=== PATIENT | male | born 1995 | race African-American/Black ===

== ENCOUNTER 2021-08-16 15:48 | Emergency (ER) | payer BC ==
[~2021-08-16] VITALS: Ht 175.3 cm; Wt 72.6 kg
[2021-08-16] MEDS ORDERED: HYDROCODONE/APAP 5MG-325MG TAB PO ONE (17:45)
[2021-08-16] MEDS ORDERED: ONDANSETRON HCL 4 MG ORAL DISINTEGRATING TAB ONE (18:21)
[2021-08-16] MEDS ORDERED: DOXYCYCLINE HY100 MG PO (18:40)
[2021-08-16] MEDS ORDERED: CLEOCIN HCL300 MG PO (18:41)
[2021-08-16] MEDS ORDERED: ULTRAM 50MG50 MG PO (18:44)
[2021-08-16] MEDS ORDERED: ONDANSETRON HCL 4 MG ORAL DISINTEGRATING TAB PO ONE (18:45)
[2021-08-16 19:10] VITALS: BP 134/79
== END 2021-08-16 19:15 | disposition home or self-care (01) ==
LOC: FSED 16:28
DX: K61.1 Rectal abscess (principal)
CPT/HCPCS: 46040; 99283; Q0162